=== PATIENT | male | born 1970 | race Caucasian/White ===

== ENCOUNTER 2020-06-25 14:46 | Emergency (ER) | payer BC, SELFPAY ==
--- NOTE | ~2020-06-25 | CT_ITS ---
EXAMINATION: CT abdomen pelvis w con DATE: 06/25/2020 17:39 INDICATION: Lower abdominal pain TECHNIQUE: Computed tomography (CT) of the abdomen and pelvis was performed with 100 cc Omnipaque 350 intravenous contrast. The dose-length product was 1388.85 mGy-cm. Automated exposure control and ite rative reconstruction technique were employed. COMPARISON: None. FINDINGS: Lung bases are unremarkable. Heart size normal. No significant pleural or pericardial effus ion. No significant vascular abnormality. No lymphadenopathy. Fatty infiltration of the liver. The spleen, pancreas, adrenal glands and kidneys are unremarkable. G allbladder is present. There are multiple mildly thickened segments of small bowel with scattered air -fluid levels and segments of mildly dilated small bowel. No definite transition point is identified, although the distal small bowel is decompressed. Small amount of free fluid in the pelvis and mesent mary. No acute osseous abnormality. IMPRESSION: 1. Mildly dilated fluid-filled small bowel with segments of bowel wall thickening. No definite transi tion point. Differential diagnosis includes enteritis, ileus and partial small bowel obstruction. 2: Small amount of free fluid in the pelvis and mesentery, nonspecific. Reviewed, dictated and finalized at location A. IMPRESSION: 1. Mildly dilated fluid-filled small bowel with segments of bowel wall thickeni ng. No definite transition point. Differential diagnosis includes enteritis, il eus and partial small bowel obstruction. 2: Small amount of free fluid in the pelvis and mesentery, nonspecific.
[2020-06-25 14:52] VITALS: BP 157/104; PULSE 90; RESP 18; TEMP 36; O2SAT 98
[2020-06-25 15:09] LABS: Basophils Percent Auto 0.3 % (0.2-1.2); Eosinophils Absolute Auto 0.3 K/mm3 (0-0.3); Eosinophils Percent Auto 2.2 % (0-4.4); Hematocrit 46.8 % (42.0-52.0); Hemoglobin 16.3 g/dL (14.0-18.0); Immature Granulocyte Absolute 0.04 K/mm3 (0.00-0.031); Immature Granulocyte Percent A 0.3 % (0-0.5); Lymphocytes Absolute Auto 2.07 K/mm3 (0.9-3.2); Lymphocytes Percent Auto 17.9 % (18.3-44.2); Mean Corpuscular HGB Conc 34.8 g/dl (32-36); Mean Corpuscular Hemoglobin 30.1 pg (26-34); Mean Corpuscular Volume 86.5 fl (80-100); Mean Platelet Volume 10.3 fl (7.4-10.4); Monocytes Absolute Auto 0.6 K/mm3 (0.1-0.6); Monocytes Percent Auto 5.4 % (2.6-8.5); Neutrophils Absolute Auto 8.5 K/mm3 (1.3-6.7); Neutrophils Percent Auto 73.9 % (45.5-73.1); Platelet Count Result 330 k/mm3 (150-375); Red Blood Count 5.41 M/mm3 (4.6-6.20); Red Cell Distribution Width 12.8 % (11.5-14.5); White Blood Count 11.6 K/mm3 (4.5-10.0)
[2020-06-25 15:20] LABS: Alanine Aminotransferase 70 U/L (4-50); Albumin Level 4.8 g/dL (3.5-5.1); Alkaline Phosphatase 89 U/L (38-126); Anion Gap 10 mmol/L (8-16); Aspartate Amino Transferase 50 U/L (17-59); Bilirubin,Total 0.5 mg/dL (0.2-1.3); Blood Urea Nitrogen 15 mg/dL (9-20); Calcium 10.1 mg/dL (8.4-10.2); Carbon Dioxide 27 mmol/L (22-30); Chloride 100 mmol/L (98-107); Estimated CRCL calculation 167 ml/min; Estimated Glomerular Filt Rate > 60; Glucose 132 mg/dL (75-110); Lipase 64 U/L (23-300); Potassium 4.2 mmol/L (3.4-5.0); Sodium 137 mmol/L (137-145)
[2020-06-25 15:23] LABS: Add Urine Microscopic? YES; Appearance Urine Clear (Clear); Bilirubin Urine Negative (Negative); Blood Urine 1+ (Negative); Color Urine Yellow (Yellow); Glucose Urine UA Negative (Negative); Ketones Urine 1+ mg/dL (Negative); Leukocyte Esterase Ur Negative LEU/UL (Negative); Mucus Urine Rare /lpf; Nitrate Urine Negative (Negative); Protein Urine Negative (Negative); RBC Urine 0-2 /hpf (0-2); Specific Grav Ur 1.026 (1.001-1.035); Urobilinogen Urine Negative mg/dL (<2.0); WBC Urine 0-3 /hpf
--- NOTE | 2020-06-25 16:25 | ED.ABDPAIN ---
HPI - Abdominal Pain General Chief Complaint: Abdominal Pain Stated Complaint: abd pain Time Seen by Provider: 06/25/20 16:17 Source: patient Mode of arrival: ambulatory Limitations: no limitations History of Present Illness HPI narrative: This patient is a 50 year old male who presents for evaluation lower abdominal pain since last night. He reports cramping abdominal pain that improves with laying position. He denies associated nausea, vomiting or diarrhea. He also denies urinary complaints. His pain has improved currently. MD elicited complaint: abdominal pain Onset (ago): day(s) Pain Consistency: intermittent Location: LLQ Quality: cramping Radiation: none Migration to: no migration Related Data Allergies Allergy/AdvReac Type Severity Reaction Status Date / Time No Known Allergies Allergy Verified 11/12/16 00:09 Review of Systems Review of Systems: All systems reviewed & are unremarkable except as noted in HPI and below Constitutional: Constitutional: Denies chills and Denies fever(s) Gastrointestinal: Gastrointestinal: Reports abdominal pain, Denies constipation, Denies diarrhea and Denies vomiting Musculoskeletal: Musculoskeletal: Denies back pain PMFSH Past Medical History Medical History (Updated 06/25/20 @ 18:43 by Annamarie Doherty MD) DDD (degenerative disc disease) Surgical History Surgical History (Updated 06/25/20 @ 16:27 by Annamarie Doherty MD) No pertinent past surgical history Social History Social History (Updated 06/25/20 @ 16:27 by Annamarie Doherty MD) Smoking packs per day: 1 Smoking cigarettes per day: 20.0 Smoking status: Current every day smoker Exam Narrative: Exam Narrative: GENERAL: Well-appearing, well-nourished, and in no acute distress. HEAD: Normocephalic, atraumatic EYES: PERRLA and EOMI, conjunctiva clear without discharge THROAT:Mucous membranes moist, Oropharynx normal without erythema, exudate, peritonsillar swelling or fluctuance NECK: Supple, without lymphadenopathy or mass RESPIRATORY: No respiratory distress, Airway patent, Respirations non-labored, Clear to auscultation without rales, rhonchi or wheeze HEART: Regular rate and rhythm. No murmur heard. Normal peripheral pulses. ABDOMEN: Soft,LLQ pain, nondistended, normal active bowel sounds. No masses. No rebound or guarding, No organomegaly. EXTREMITIES: No edema, normal strength with full range of motion. SKIN: Warm, dry, normal color without rash NEURO: Alert and oriented x3. CN 2-12 grossly intact. No focal deficits. PSYCH: Normal mood and affect. Course Reevaluation(s) Reevaluation #1: Patient states he has not pain currently. I discussed ct scan. He most likely has enteritis as he has not nausea, vomiting and he had a normal BM today. No obstruction. He is stable for discharge home Date: 06/25/20 Time: 18:41 Vital Signs Vital signs: Vital Signs Temperature 96.8 F L 06/25/20 14:52 Pulse Rate 90 06/25/20 14:52 Respiratory Rate 18 06/25/20 14:52 Blood Pressure 157/104 H 06/25/20 14:52 Pulse Oximetry 98 06/25/20 14:52 Temperature 96.8 F L 06/25/20 14:52 Pulse Rate 90 06/25/20 14:52 Respiratory Rate 18 06/25/20 14:52 Blood Pressure 157/104 H 06/25/20 14:52 Pulse Oximetry 98 06/25/20 14:52 MDM - Abdominal Pain Lab Data Attestation: I reviewed the patient's lab results. Result diagrams: 06/25/20 15:03 06/25/20 15:03 Labs: Lab Results 06/25/20 06/25/20 06/25/20 Range/Units 15:03 15:03 15:13 WBC 11.6 H (4.5-10.0) K/mm3 RBC 5.41 (4.6-6.20) M/mm3 Hgb 16.3 (14.0-18.0) g/dL Hct 46.8 (42.0-52.0) % MCV 86.5 (80-100) fl MCH 30.1 (26-34) pg MCHC 34.8 (32-36) g/dl RDW 12.8 (11.5-14.5) % Plt Count 330 (150-375) k/mm3 MPV 10.3 (7.4-10.4) fl Immature Gran % (Auto) 0.3 (0-0.5) % Neut % (Auto) 73.9 H (45.5-73.1) % Lymph % (Auto) 17.9 L (18.3-44.2)
== END 2020-06-25 19:11 | disposition home or self-care (01) ==
PROVIDERS: Emergency Provider General Practice; PCP Family Medicine
DX: K52.9 Noninfective gastroenteritis and colitis, unspecified (principal)
CPT/HCPCS: 36415; 74177; 80053; 81001; 83690; 85025; 99284; Q9967

== ENCOUNTER 2020-12-21 16:04 | Observation (INO) | payer OTHER, SELFPAY ==
[2020-12-21] VITALS (32 sets, daily range): BP systolic 140–194; BP diastolic 92–102; PULSE 78–102; RESP 13–23; TEMP 36.1–36.7; O2SAT 93–99; BMI 36.9; BMI 36.1
--- NOTE | ~2020-12-21 | XR_ITS ---
EXAMINATION: XR chest 2V EXAM DATE: 12/21/2020 16:32 INDICATION: Chest tightness, shortness of breath. Heart racing. TECHNIQUE: Frontal and lateral projections of the chest obtained and reviewed. Comparison is made to prior examination from 04/17/2008. FINDINGS: The lungs are clear. There are no pleural effusions. The cardiomediastinal silhouette is within normal limits. There is no pneumothorax suspected. The bones and soft tissues are unremarkab le. IMPRESSION: No acute cardiopulmonary findings. Reviewed, dictated and finalized at location A. TAL MEDIA REPRESENTATIVE
--- NOTE | 2020-12-21 16:09 | ECG_ITS ---
Measurements Intervals [place] Rate: 100 P: 64 AL: 167 QRS: 13 QRSD: 84 T: 50 QT: 324 QTc: 419 Interpretive Statements SINUS TACHYCARDIA MINIMAL Q WAVES- INFERIOR LEADS BASELINE ARTIFACT- I, II, III, AVR, AVL,A VF, V1, V5-V6 BORDERLINE ECG Electronically Signed On 12-21-2020 21:22:46 GRAPHIC TECHNICIAN by Delgado Arthur D.O.
[2020-12-21 16:17] LABS: Basophils Percent Auto 0.5 % (0.2-1.2); Eosinophils Absolute Auto 0.5 K/mm3 (0-0.3); Eosinophils Percent Auto 5.6 % (0-4.4); Hemoglobin 14.5 g/dL (14.0-18.0); Immature Granulocyte Absolute 0.02 K/mm3 (0.00-0.031); Immature Granulocyte Percent A 0.2 % (0-0.5); Lymphocytes Absolute Auto 2.65 K/mm3 (0.9-3.2); Lymphocytes Percent Auto 31.3 % (18.3-44.2); Mean Corpuscular HGB Conc 33.7 g/dl (32-36); Mean Corpuscular Hemoglobin 30.3 pg (26-34); Mean Platelet Volume 9.8 fl (7.4-10.4); Monocytes Absolute Auto 0.7 K/mm3 (0.1-0.6); Monocytes Percent Auto 8.7 % (2.6-8.5); Neutrophils Absolute Auto 4.5 K/mm3 (1.3-6.7); Neutrophils Percent Auto 53.7 % (45.5-73.1); Platelet Count Result 298 k/mm3 (150-375); Red Blood Count 4.78 M/mm3 (4.6-6.20); Red Cell Distribution Width 13.2 % (11.5-14.5); White Blood Count 8.5 K/mm3 (4.5-10.0)
[2020-12-21 16:29] LABS: Anion Gap 7 mmol/L (8-16); Blood Urea Nitrogen 17 mg/dL (9-20); Calcium 9.4 mg/dL (8.4-10.2); Carbon Dioxide 30 mmol/L (22-30); Chloride 103 mmol/L (98-107); Estimated CRCL calculation 92 ml/min; Estimated Glomerular Filt Rate > 60; Glucose 114 mg/dL (75-110); INR 0.9; Potassium 3.9 mmol/L (3.4-5.0); Prothrombin Time 13.1 Seconds (11.1-14.7); Sodium 140 mmol/L (137-145)
[2020-12-21 16:30] LABS: Partial Thromboplastin Time 29.3 SECONDS (22.3-36.8)
[2020-12-21 16:41] LABS: Troponin I < 0.012 ng/mL (0.000-0.034)
[2020-12-21] MEDS: ASPIRIN 81 MG CHEWABLE TABLET 324 MG PO (16:48)
--- NOTE | 2020-12-21 17:32 | ED.CHESTPAIN ---
HPI - Chest Pain General Chief Complaint: Chest Pain Stated Complaint: dizzy, chest pain Time Seen by Provider: 12/21/20 16:10 Source: patient and family Mode of arrival: ambulatory Limitations: no limitations History of Present Illness HPI narrative: Patient is 50 years old white male presented to the ED with intermittent shortness of breath and chest tightness started few days ago. 2 days ago patient was moving a trash can out of the snow subsequently developed severe chest tightness and trouble breathing. The same symptoms happened again today. Patient had history of COVID-19 infection September 2020 with out any subsequent known complications. Patient was scheduled for dental extraction recently and the blood pressure was elevated and the procedure was postponed. Patient used to have high blood pressure medications which discontinued 2006. Last time was seen by his family physician over 1 year ago, unable to follow-up because of the COVID-19 pandemic Related Data Home Medications Medication Instructions Recorded Confirmed alprazolam 1 mg PO TID PRN 12/21/20 12/21/20 buprenorphine-naloxone 2 tablet SUBLINGUAL DAILY 12/21/20 12/21/20 Allergies Allergy/AdvReac Type Severity Reaction Status Date / Time No Known Allergies Allergy Verified 12/21/20 16:48 Review of Systems Review of Systems: Narrative: CONSTITUTIONAL: Denies fever, chills, or sweats. EYES: Denies visual changes, redness, or discharge. ENT: Denies rhinorrhea, congestion, sore throat, or otalgia. CARDIOVASCULAR: Denies chest pain, palpitations, or edema. RESPIRATORY: Denies cough or dyspnea. GASTROINTESTINAL: Denies abdominal pain, nausea, vomiting, or diarrhea. GENITOURINARY: Denies dysuria or hematuria. SKIN: Denies rash or itching. MUSCULOSKELETAL: Denies back pain, joint pain, or myalgia. NEUROLOGIC: Denies headache, numbness, or weakness. PSYCHIATRIC: Denies anxiety or depression. PMFSH Past Medical History Medical History DDD (degenerative disc disease) Surgical History Surgical History No pertinent past surgical history Social History Social History Smoking packs per day: 1 Smoking cigarettes per day: 20.0 Smoking status: Current every day smoker Gender identity (if verbalized by the patient): Male Exam Narrative: Exam Narrative: General appearance: Well-developed, well-nourished, obese, at the bedside Skin: Normal color Head: Normocephalic, nontraumatic Eyes: Clear conjunctiva ENT: Oropharynx normal, ears normal, nose normal Neck: Supple, nontender Chest and respiratory: Airway patent, no respiratory distress, no accessory muscle use Heart: Regular rate/rhythm Abdomen: Soft, nontender, no organomegaly, quiet bowel sounds Vascular: Normal peripheral pulses, normal capillary refill. Musculoskeletal: Normal range of motion, nontender back Neurologic: Alert and oriented ?3, [employer] is normal as tested, no gross motor deficit Course Course Emergency Course: Stable Consultations Consultation #1: DR HENDERSON Date: 12/21/20 Time: 18:21 Vital Signs Vital signs: Vital Signs Temperature 36.1 C L 12/21/20 16:08 Pulse Rate 99 12/21/20 16:08 Respiratory Rate 18 12/21/20 16:08 Blood Pressure 194/101 H 12/21/20 16:08 Pulse Oximetry 99 12/21/20 16:08 Temperature 36.1 C L 12/21/20 16:08 Pulse Rate 81 12/21/20 17:42 Respiratory Rate 20 12/21/20 17:42 Blood Pressure 147/92 H 12/21/20 17:42 Pulse Oximetry 96 12/21/20 17:42 MDM - Chest Pain MDM Narrative Medical deci
[2020-12-21] MEDS: METOPROLOL TARTRATE TAB 25 MG, METOPROLOL TARTRATE TAB 12.5 MG 37.5 MG PO (17:50)
[2020-12-21] MEDS: NITROGLYCERIN OINTMENT 1 INCH DOSE TRANSDERM ×2 (17:51→23:32)
[2020-12-21] MEDS: LORazepam INJ (*CRX) 2 MG/ML VIAL 1 MG IV PUSH (18:51)
[2020-12-21 20:27] LABS: Troponin I < 0.012 ng/mL (0.000-0.034)
--- NOTE | 2020-12-21 21:59 | ADMGEN ---
This patient, Ishmael Lofton, was admitted to IMU Room 203-01 on 12-21-20 at 1950. Patient/family oriented to hospital policies and general routines including ID bracelet, bed and alarms, visiting hours, pain management, procedures, bathroom and other care routines, personal items, smoking policy, room service/diet, and visiting hours. Information on how to activate the Rapid Response Team has been discussed. Patient/Family are encouraged to report perceived risks to care and to ask questions if they do not understand what they are told or what they should do.
[2020-12-21 23:51] LABS: Troponin I < 0.012 ng/mL (0.000-0.034)
[2020-12-22] VITALS (8 sets, daily range): BP systolic 130–150; BP diastolic 74–101; PULSE 73–103; RESP 16–18; TEMP 36.3–36.7; O2SAT 96–100
[2020-12-22] MEDS: NICOTINE (*PBKC) 21 MG PATCH 1 PATCH TRANSDERM (04:18)
[2020-12-22] MEDS: NITROGLYCERIN OINTMENT 1 INCH DOSE TRANSDERM (05:55)
--- NOTE | 2020-12-22 08:34 | PHAR ---
The patient's home med of Buprenorphine-Naloxone 8-2 mg tablet, sublingual has been verified.
--- NOTE | 2020-12-22 09:16 | PM.IMHP ---
H&P: HPI History of Present Illness Date/Time: Date of service: 12/22/20 09:16 Chief complaint: Chest tightness and shortness of breath Cardiology short-stay H and P summary: Chief Complaint: chest pain and shortness of breath. Narrative: Ishmael Lofton is a 50 year old male with past medical history significant for hypertension, tobacco abuse, obesity, possible obstructive sleep apnea who presents to the emergency depart with complaints of chest tightness and shortness of breath. Patient states 2 weeks ago he received epinephrine injection in his mouth anticipation for tooth extraction and developed diaphoresis, rapid heartbeat/palpitations blood pressures 180s over 118mmHg he recalls that eventually resolved spontaneously in the cold air. Patient denied chest pain at that time. Patient states he was otherwise feeling reasonably well but at times would notice rapid heart rate and shortness of breath when he would go upstairs which resolved quickly. He denies associated chest pain at those times either. The day before presentation he was taking out heavy trash cans in the snow and developed rapid heartbeat and shortness of breath once again but without chest pain. He had noted on a couple of occasions tightness in his left and right chest without radiation but then on 1 occasion states pain radiated to his legs. CP occurred at rest, not with activity and would last a few seconds and then resolve. Subsequently, his symptoms returned and were rather constant with SOB which concerned him and his prompted him to present to the ED for evaluation. His EKG does not reveal acute ischemic changes and he has ruled out for myocardial infarction with negative serial Toponins. He did not note any exacerbation with activity at that time. No near-syncope or syncope, recent illnesses, fevers or chills. He COVID-19 in September 2020 but had fully recovered. He reports a history of multiple family members diagnosed with pheochromocytoma. He has not been on antihypertensive medical therapy for quite some time but was quite hypertensive presentation blood pressure 194/101. He received nitroglycerin and metoprolol emergency department and his symptoms eventually resolved with reduction in his blood pressure. He removed nitroglycerin paste this morning on his own due to headache with no recurrence of chest pain. States he feels very well and has no other complaints at this time. He has no known prior history of CAD or other cardiovascular complications. Patient also notes a history of acid reflux of late improved with omeprazole which is somewhat different than that noted at presentation. Review of Systems Review of Systems: All systems reviewed & are unremarkable except as noted in HPI and below Constitutional: Constitutional: Reports as per HPI, Reports no additional constitutional complaints and Reports difficulty sleeping (Longstanding, frequent awakening, snores) Eyes: Eyes: Reports as per HPI and Reports no additional eye complaints ENT: Reports system reviewed and no additional complaints, except as documented and Reports as per HPI Cardiovascular: Cardiovascular: Reports as per HPI, Reports no additional cardiovascular complaints, Reports chest pain and Denies leg edema Respiratory: Respiratory: Reports as per HPI, Reports no additional respiratory complaints and Reports dyspnea Gastrointestinal: Gastrointestinal: Reports as per HPI, Reports no additional gastrointestinal complaints, Denies abdominal pain, Denies melena, Denies hematochezia, Reports heartburn, Denies diarrhea, Denies nausea and Denies vomiting Genitourinary: Genitourinary: Reports no additional male genitourinary complaints and Reports as per HPI Musculoskeletal: Musculoskeletal: Reports no additional musculoskeletal complaints, Reports as per HPI, Reports back pain (Chronic, constant) and Reports arthralgias Integumentary/Breasts: Skin/Breast: Reports system reviewed and no additional co
[2020-12-22] MEDS: METOPROLOL TARTRATE 25 MG TABLET PO (09:20)
[2020-12-22] MEDS: amLODIPine BESYLATE 5 MG TABLET PO (09:21)
[2020-12-22] MEDS: PANTOPRAZOLE 40 MG TABLET PO (09:21)
[2020-12-22] MEDS: ASPIRIN 81 MG CHEWABLE TABLET PO (09:21)
== END 2020-12-22 13:45 | disposition home or self-care (01) ==
LOC: ANHED 18:22 → ANHIMU 21:50
PROVIDERS: Admitting Provider Internal Medicine Cardiovascular Disease; Emergency Provider Emergency Medicine; PCP Family Medicine; Visit Provider Internal Medicine Cardiovascular Disease
DX: R07.9 Chest pain, unspecified (principal); R06.02 Shortness of breath; I10 Essential (primary) hypertension; F41.9 Anxiety disorder, unspecified; Z86.16 Personal history of COVID-19; F17.210 Nicotine dependence, cigarettes, uncomplicated; E66.9 Obesity, unspecified; Z68.36 Body mass index [BMI] 36.0-36.9, adult
CPT/HCPCS: 36415; 71046; 80048; 84484; 85025; 85380; 85610; 85730; 93005; 96374; 99285; A9270; G0378; G0379; J2060

== ENCOUNTER 2021-05-02 12:34 | Emergency (ER) | payer OTHER, SELFPAY ==
[2021-05-02 12:40] VITALS: BP 159/94; PULSE 96; RESP 20; TEMP 36.3; O2SAT 98
--- NOTE | 2021-05-02 12:44 | ED.SKABFB ---
HPI - Skin/Abscess/Foreign Bdy General Chief complaint: Skin/Abscess/Foreign Body Stated complaint: RASH Time Seen by Provider: 05/02/21 13:02 Source: patient and RN notes reviewed Mode of arrival: ambulatory Limitations: no limitations History of Present Illness HPI narrative: 51-year-old male presents concern for rash that started 5 to 6 days ago. Reports itchy rash started on bilateral legs and had patches of pustules with yellow clear fluid. Reports those have resolved however the rash has since spread to his arms, torso. Reports the rash continues to itch generally. He denies swollen lips, swollen tongue, trouble breathing. Denies nausea, vomiting, diarrhea, fever. Denies any known triggers, exposure to poison angela/poison oak. Denies any new medications. MD complaint: rash Related Data Home Medications Medication Instructions Recorded Confirmed alprazolam 1 mg PO TID PRN 12/21/20 12/21/20 buprenorphine-naloxone 2 tablet SUBLINGUAL DAILY 12/21/20 12/21/20 omeprazole 20 mg PO DAILY 12/21/20 12/21/20 buprenorphine-naloxone tablet SUBLINGUAL 05/02/21 Allergies Allergy/AdvReac Type Severity Reaction Status Date / Time No Known Allergies Allergy Verified 05/02/21 12:46 Review of Systems Review of Systems: Narrative: CONSTITUTIONAL: Denies malaise, chills, sweats, or fever. EYES: Denies visual changes, redness, or discharge. ENT: Denies rhinorrhea, congestion, sinus pain, otalgia or sore throat, swollen lips, swollen tongue CARDIOVASCULAR: Denies chest pain, palpitations, or edema. RESPIRATORY: Denies cough or dyspnea. GASTROINTESTINAL: Denies abdominal pain, nausea, vomiting, diarrhea SKIN: Reports generalized itchy rash MUSCULOSKELETAL: Denies myalgia. All systems reviewed & are unremarkable except as noted in HPI and below PMFSH Past Medical History Medical History DDD (degenerative disc disease) Hypertension Surgical History Surgical History No pertinent past surgical history Family History Family History Sibling Diabetes mellitus STEMI (ST elevation myocardial infarction) Kidney disease Pheochromocytoma Kidney transplant recipient Hypertension Father Dementia Hypertension Mother Stomach cancer Social History Social History Smoking packs per day: 0.5 Smoking cigarettes per day: 10.0 Years smoked: 30 Smoking pack-years: 15.00 Smoking status: Current every day smoker Tobacco type: cigarettes Second hand tobacco smoke exposure: Yes Substance use: former Substance use type: crack/cocaine Other substance usage details: clean since October 01, 2019 Gender identity (if verbalized by the patient): Male Spiritual care concerns: No Comments At time of signature, agree with nursing past medical, surgical, social and family history. There is no relevant family history pertinent to the presenting complaint Exam Narrative: Exam Narrative: GENERAL: Well-appearing, well-nourished, and in no acute distress. HEAD: Normocephalic, atraumatic. EYES: PERRLA, conjunctivae clear, and EOMI. ENT: Mucous membranes moist. Oropharynx without edema, erythema or lesions. NECK: Supple. No lymphadenopathy CHEST: Clear to auscultation. No respiratory distress. HEART: Regular rate and rhythm. SKIN: Warm, dry. Patches of maculopapular rash noted to bilateral arms, legs, torso NEURO: Alert and oriented x3. PSYCH: Normal mood and affect Course Course Emergency Course: Patient is aware of diagnosis, understands and agrees to treatment plan. Anticipatory guidance given. Patient agrees to follow-up as directed and is aware of reasons to seek care at the emergency department. Portions of this record may have been created with voice recognition software Vital Signs Madelin
== END 2021-05-02 13:16 | disposition home or self-care (01) ==
PROVIDERS: Emergency Provider Nurse Practitioner; PCP Family Medicine
DX: L25.9 Unspecified contact dermatitis, unspecified cause (principal); F17.210 Nicotine dependence, cigarettes, uncomplicated; I10 Essential (primary) hypertension
CPT/HCPCS: 99213; G0463

== ENCOUNTER 2022-08-31 17:47 | Observation (INO) | payer OTHER, SELFPAY ==
--- NOTE | ~2022-08-31 | XR_ITS ---
EXAM: XR abdomen/kub 1V DATE: 08/31/2022 20:13 HISTORY: cramping . COMPARISON: None available. FINDINGS: Clear lung bases. Multiple loops of dilated small bowel in the left abdomen. No organomega ly. No abnormal abdominal calcification. Degenerative change in the lumbar spine. IMPRESSION: Small bowel obstruction or ileus. Reviewed, dictated and finalized at location K.
--- NOTE | ~2022-08-31 | CT_ITS ---
EXAMINATION: CT abdomen pelvis w con DATE: 08/31/2022 21:28 INDICATION: obstruction TECHNIQUE: Computed tomography (CT) of the abdomen and pelvis was performed with 100 mL Omnipaque-350 intravenous contrast. Automated exposure control and iterative reconstruction technique were employe d. The dose-length product was 1476.98 mGy-cm. COMPARISON: 06/25/2020. FINDINGS: Lower thorax: Unremarkable Liver: Diffuse fatty infiltration. Biliary/Gallbladder: Gallbladder is normal. No bile duct dilation. Pancreas: No mass or duct dilation. Spleen: Normal. Adrenals:No mass. Kidneys: No mass, stone, or hydronephrosis. GI tract: Multiple loops of moderately dilated small bowel in the left abdomen, without focal transit ion point. No pneumatosis or interloop fluid. No large bowel dilation. Normal appendix. Mesentery/Peritoneum: No ascites, mass, or free air. Retroperitoneum: No mass. Atherosclerotic abdominal aortic and/or arterial calcifications. Pelvis: Pelvic organs are within normal limits. Soft Tissues: Soft tissues and body wall unremarkable. Bones: No acute osseous finding. IMPRESSION: Small bowel ileus versus early or partial obstruction. No obstructing lesion or mass detected. No oth er acute abdominopelvic process. Reviewed, dictated and finalized at location K. IMPRESSION: Small bowel ileus versus early or partial obstruction. No obstructing lesion or mass detected. No other acute abdominopelvic process.
--- NOTE | ~2022-08-31 | XR_ITS ---
EXAMINATION: XR sm bowel follow through DATE: 09/01/2022 10:24 INDICATION: Abdominal pain. TECHNIQUE: Oral contrast was administered, and a time course of radiographs of the abdomen was obtain ed. Fluoroscopy of the small bowel was not performed. Fluoroscopy exposure time was 0 minutes. The to cliff number of images was 7. COMPARISON: CT abdomen and pelvis 08/31/2022 FINDINGS: There are mildly dilated loops of jejunum. The liver is normal in caliber. Transit time from the stom ach to proximal colon was approximately 1 hour. IMPRESSION: 1. Mildly dilated jejunum, likely adynamic ileus. Reviewed, dictated and finalized at location A.
[2022-08-31 18:11] VITALS: BP 152/93; PULSE 100; RESP 15; TEMP 36.8; O2SAT 95
[2022-08-31 18:32] LABS: Basophils Percent Auto 0.2 % (0.2-1.2); Eosinophils Absolute Auto 0.1 K/mm3 (0-0.3); Hematocrit 46.9 % (42.0-52.0); Hemoglobin 15.8 g/dL (14.0-18.0); Immature Granulocyte Absolute 0.05 K/mm3 (0.00-0.031); Immature Granulocyte Percent A 0.4 % (0-0.5); Lymphocytes Absolute Auto 1.55 K/mm3 (0.9-3.2); Lymphocytes Percent Auto 12.1 % (18.3-44.2); Mean Corpuscular HGB Conc 33.7 g/dl (32-36); Mean Corpuscular Hemoglobin 30.4 pg (26-34); Mean Corpuscular Volume 90.2 fl (80-100); Mean Platelet Volume 9.7 fl (7.4-10.4); Monocytes Absolute Auto 0.5 K/mm3 (0.1-0.6); Monocytes Percent Auto 4.2 % (2.6-8.5); Neutrophils Absolute Auto 10.5 K/mm3 (1.3-6.7); Neutrophils Percent Auto 82.1 % (45.5-73.1); Platelet Count Result 408 k/mm3 (150-375); Red Cell Distribution Width 12.3 % (11.5-14.5); White Blood Count 12.8 K/mm3 (4.5-10.0)
[2022-08-31 18:46] LABS: Appearance Urine Clear (Clear); Bilirubin Urine Negative (Negative); Blood Urine Negative (Negative); Color Urine Yellow (Yellow); Glucose Urine UA Negative (Negative); Ketones Urine Negative (Negative); Leukocyte Esterase Ur Negative LEU/UL (Negative); Nitrate Urine Negative (Negative); Protein Urine Negative (Negative); Urobilinogen Urine 0.2 mg/dL (<2.0)
[2022-08-31 18:49] LABS: Mucus Urine Rare /lpf; RBC Urine 0-2 /hpf (0-2); WBC Urine 0-3 /hpf
[2022-08-31 18:55] LABS: Add Urine Microscopic? YES
[2022-08-31 18:57] LABS: Alanine Aminotransferase 43 U/L (6-50); Albumin Level 4.9 g/dL (3.5-5.1); Alkaline Phosphatase 84 U/L (38-126); Anion Gap 16 mmol/L (8-16); Aspartate Amino Transferase 39 U/L (17-59); Bilirubin,Total 0.4 mg/dL (0.2-1.3); Blood Urea Nitrogen 13 mg/dL (9-20); Calcium 9.4 mg/dL (8.4-10.2); Carbon Dioxide 27 mmol/L (22-30); Chloride 96 mmol/L (98-107); Estimated CRCL calculation 163 ml/min; Estimated Glomerular Filt Rate > 60; Glucose 122 mg/dL (65-110); Lipase 36 U/L (23-300); Potassium 4.3 mmol/L (3.4-5.0); Sodium 139 mmol/L (137-145)
[2022-08-31 20:00] VITALS: BP 155/99; PULSE 94; RESP 16; O2SAT 97
--- NOTE | 2022-08-31 20:00 | ED.ABDPAIN ---
HPI - Abdominal Pain General Chief Complaint: Abdominal Pain Stated Complaint: TOOTH PAIN, FATTY LIVER DISEASE NAUSEA Time Seen by Provider: 08/31/22 19:47 History of Present Illness HPI narrative: Patient is a 52-year-old male who presents ER with abdominal cramping and bloating. Reports he has been having cramping as a knot in the his lower abdomen over the last day. No radiation. Alleviated at this time. Has had persistent desire to vomit and has actually force himself to vomit which only improved his symptoms for several minutes. He reports that his last bowel movement was yesterday and has not passed gas today. He has had inguinal hernia repair in the past. No fevers or chills or sweats. No chest pain or chest pressure. No diarrhea. No known sick contacts. Has history of fatty liver disease for which she is cared for at [facility]. Reports he had elevated liver enzymes that improved when he decreased his alcohol intake. Related Data Home Medications Medication Instructions Recorded Confirmed alprazolam 1 mg tablet 1 mg PO TID PRN Anxiety 12/21/20 09/01/22 buprenorphine 8 mg-naloxone 2 mg 2 tablet sublingual DAILY 12/21/20 09/01/22 sublingual tablet amlodipine 5 mg tablet (Norvasc) 5 mg PO DAILY 09/01/22 09/01/22 umeclidinium 62.5 mcg-vilanterol 1 inh inhalation DAILY 09/01/22 09/01/22 25 mcg/actuation powdr for inhalation (Anoro Ellipta) Allergies Allergy/AdvReac Type Severity Reaction Status Date / Time lidocaine AdvReac Hypertensio Verified 09/01/22 01:33 n Review of Systems Review of Systems: All systems reviewed & are unremarkable except as noted in HPI and below Constitutional: Constitutional: Denies chills, Reports fatigue and Denies fever(s) ENT: Denies nasal congestion and Denies sore throat Cardiovascular: Cardiovascular: Denies chest pain, Denies rapid heart rate and Denies radiating jaw, neck or arm pain Respiratory: Respiratory: Denies cough, Denies dyspnea and Denies wheezing Gastrointestinal: Gastrointestinal: Reports abdominal pain, Reports bloating, Denies constipation, Denies diarrhea, Reports nausea and Reports vomiting PMFSH Past Medical History Medical History (Updated 09/01/22 @ 03:57 by Jay Lay MD) DDD (degenerative disc disease) Hypertension Surgical History Surgical History (Updated 08/31/22 @ 20:02 by Jay Lay MD) H/O hernia repair Family History Family History Sibling Diabetes mellitus STEMI (ST elevation myocardial infarction) Kidney disease Pheochromocytoma Kidney transplant recipient Hypertension Father Dementia Hypertension Mother Stomach cancer Social History Social History Years smoked: 30 Smoking status: Current every day smoker Second hand tobacco smoke exposure: Yes Alcohol intake: current Drinks per week: 2 Alcohol use details: couple beers here and there Substance use: former Substance use type: crack/cocaine Other substance usage details: clean since October 01, 2019 Has the Lack of Transportation Kept You From Medical Appointments or From Getting Medications?: No Within the Past 12 Months, Were You Worried Whether Your Food Would Run Out Before You Got Money to Buy More?: Never True What is Your Housing Situation Today?: I Have Housing Are You Worried That in the Next 2 Months, You May Not Have Your Own Housing to Live In?: No Do You Have Trouble Paying Your Heating Or Electricity Bill?: No Do You Have Trouble Paying For Medicines?: No Are You Currently Unemployed and Looking for Work?: No Highest Level of Education Completed: High School Diploma/GED Do You Have Trouble With Childcare or the Care of a Family Member?: No Gender identity (if verbalized by the patient): Male Spiritual care concerns: No Exam Narrative: GENERAL: Well-appearing,
[2022-08-31] MEDS: ONDANSETRON INJ 4 MG/2 ML VIAL IV PUSH (20:04)
[2022-08-31 21:00] VITALS: BP 158/108; PULSE 102; RESP 102; TEMP 36.8; O2SAT 98
[2022-08-31 22:00] VITALS: BP 153/109; PULSE 107; RESP 16; TEMP 36.8; O2SAT 98
[2022-08-31 23:00] VITALS: BP 153/106; PULSE 104; RESP 16; TEMP 36.8; O2SAT 97
--- NOTE | 2022-08-31 23:12 | PM.IMHP ---
H&P: HPI History of Present Illness Date/Time: 08/31/22 23:12 Chief Complaint: abdominal pain Narrative: This is a 52-year-old male with past medical history significant for tobacco dependence, alcohol abuse, obesity, hypertension, COPD/emphysema, NOE. patient presents to the emergency room due to abdominal pain which is diffused started out in the morning progressively got worse over the course of the day had some nausea but no vomiting patient has been able to pass gas denies any changes in his stool character, denies hematemesis, melena, coffee-ground emesis, bright red blood per rectum, has had some loose stools, denies any weight loss. Patient has been in his usual state of health prior to today's events. Preliminary workup was significant for abdomen x-ray was reported as: IMPRESSION: Small bowel obstruction or ileus a CT of abdomen and pelvis was reported as: IMPRESSION: Small bowel ileus versus early or partial obstruction. No obstructing lesion or mass detected. No other acute abdominopelvic process. patient has been admitted for further evaluation management and treatment. Review of Systems Review of Systems: abdominal pain, nausea. Constitutional: Constitutional: Denies chills, Denies fever(s), Denies malaise, Denies night sweats, Denies weakness and Denies weight loss Eyes: Eyes: Denies change in vision ENT: Denies dysphagia, Denies vertigo, Denies dizziness and Denies odynophagia Cardiovascular: Cardiovascular: Denies chest pain, Denies syncope, Denies irregular heart rhythm, Denies leg edema, Denies lightheadedness and Denies palpitations Respiratory: Respiratory: Denies chest congestion, Denies cough, Denies excessive phlegm production, Denies pain on inspiration, Denies dyspnea and Denies wheezing Gastrointestinal: Gastrointestinal: Reports abdominal pain, Denies melena, Denies hematochezia, Denies change in stool character, Denies coffee ground emesis, Denies early satiety, Denies dyspepsia, Denies heartburn, Denies diarrhea, Reports loose stools, Reports nausea and Denies vomiting Genitourinary: Genitourinary: Denies dysuria Musculoskeletal: Musculoskeletal: Reports back pain Integumentary/Breasts: Skin/Breast: Denies rash Neurologic: Denies vertigo, Denies dizziness, Denies focal weakness and Denies Sensory deficit (Neuro) Psychiatric: Psychiatric: Reports no additional psychiatric complaints and Reports as per HPI Endocrine: Endocrine: Denies cold intolerance, Denies flushing, Denies heat intolerance, Denies polyphagia, Denies polydipsia and Denies palpitations Hematologic/Lymphatic: Hematologic/Lymphatic: Reports no additional hematologic/lymphatic complaints and Reports as per HPI Allergic/Immunologic: Allergic/Immunologic: Reports no additional allergic/immunologic complaints and Reports as per HPI PMFSH Past Medical History Medical History (Updated 09/01/22 @ 03:38 by Stevo Ramos MD) DDD (degenerative disc disease) Hypertension Surgical History Surgical History (Updated 08/31/22 @ 20:02 by Jay Lay MD) H/O hernia repair Family History Family History Sibling Diabetes mellitus STEMI (ST elevation myocardial infarction) Kidney disease Pheochromocytoma Kidney transplant recipient Hypertension Father Dementia Hypertension Mother Stomach cancer Social History Social History Years smoked: 30 Smoking status: Current every day smoker Second hand tobacco smoke exposure: Yes Alcohol intake: current Drinks per week: 2 Alcohol use details: couple beers here and there Substance use: former Substance use type: crack/cocaine Other substance usage details: clean since October 01, 2019 Has the Lack of Transportation Kept You From Medical Appointments or From Getting Medications?: No Within the Past 12 Months, Were You Wor
[2022-08-31] MEDS: LORazepam INJ (*CRX) 2 MG/ML VIAL 0.5 MG IV PUSH (23:30)
--- NOTE | 2022-08-31 23:49 | PC.NURSE ---
Hold on NGT at this time per V.O Dr. Ramos. Pt is resting on cot no distress, skin pwd and has not had any emesis since arriving to the ED
[2022-08-31 23:52] VITALS: BP 156/100; PULSE 86; RESP 16; TEMP 36.8; O2SAT 100
[2022-09-01 00:43] LABS: SARS-CoV-2 RNA PCR Negative
[2022-09-01 01:00] VITALS: BP 152/100; PULSE 84; RESP 16; TEMP 36.8; O2SAT 100
[2022-09-01 01:20] VITALS: BP 142/90; PULSE 90; RESP 16; TEMP 37.1; O2SAT 91
[2022-09-01 01:21] VITALS: BMI 36.2
--- NOTE | 2022-09-01 01:28 | ADMGEN ---
This patient, Ishmael Lofton, was admitted to [facility] Surg Room 311-01. Patient/family oriented to hospital policies and general routines including ID bracelet, bed and alarms, visiting hours, pain management, procedures, bathroom and other care routines, personal items, smoking policy, room service/diet, and visiting hours. Information on how to activate the Rapid Response Team has been discussed. Patient/Family are encouraged to report perceived risks to care and to ask questions if they do not understand what they are told or what they should do.
[2022-09-01] MEDS: SODIUM CHLORIDE 0.9% IV 1,000 ML 125 ML IV CONT (01:54)
[2022-09-01 06:00] VITALS: BP 130/83; PULSE 80; RESP 16; TEMP 36.3; O2SAT 95
--- NOTE | 2022-09-01 11:00 | PM.DS ---
DS: Admitting Diagnosis Discharge Date 09/01/22 1100 Admitting Diagnosis Small bowel obstruction DS: Discharge Diagnosis Discharge Diagnosis (1) Abdominal pain: Code(s): R10.9 - Unspecified abdominal pain Status: Acute Assessment and Plan: LIKELY SECONDARY TO ILEUS VERSUS SMALL-BOWEL OBSTRUCTION WILL OBTAIN A SMALL-BOWEL FOLLOW-THROUGH IN THE MORE SURGERY CONSULT (2) Ileus: Code(s): K56.7 - Ileus, unspecified Status: Acute Assessment and Plan: NPO SUPPORTIVE CARE CT ABDOMEN AND PELVIS REVIEWED (3) Tobacco dependence: Code(s): F17.200 - Nicotine dependence, unspecified, uncomplicated Status: Acute Assessment and Plan: PATIENT IS DOWN FOR III PACKS A DAY TO 5-6 CIGARETTES NICOTINE PATCH NEEDED (4) DDD (degenerative disc disease): Status: Acute Assessment and Plan: SUPPORTIVE CARE (5) Alcohol abuse: Code(s): F10.10 - Alcohol abuse, uncomplicated Status: Acute Assessment and Plan: PATIENT USED TO DRINK 2-6 BEERS DAILY NOW IS DOWN TO FEW BEERS ON THE WEEKENDS (6) Hypertension: Qualifiers: Hypertension type: unspecified Qualified Code(s): I10 - Essential (primary) hypertension Code(s): I10 - Essential (primary) hypertension Status: Acute Assessment and Plan: CONTINUE TO MONITOR HYDRALAZINE NEEDED (7) Obesity (BMI 30-39.9): Code(s): E66.9 - Obesity, unspecified Status: Acute Assessment and Plan: LIFESTYLE AND DIET MODIFICATION (8) NOE (nonalcoholic steatohepatitis): Code(s): K75.81 - Nonalcoholic steatohepatitis (NOE) Status: Chronic Assessment and Plan: FOLLOW-UP IN OUTPATIENT SETTING DS: Summary Hospital Course Hospital Course: Patient is 50-year-old male with past medical history of tobacco dependence, alcohol abuse, obesity, hypertension, COPD emphysema, Noe who presented to the emergency room with abdominal pain. CT of the abdomen and pelvis showed small bowel ileus versus partial or bowel obstruction. General surgery was consulted. Patient was given antiemetics. Patient did have a small-bowel follow-through which did show patency. Diet was advanced the patient was able to tolerate liquids. Patient is stable for discharge for labs and vital signs at this time. Patient was well hydrated with IV fluids and patient has also had many bouts of diarrhea due to the barium. Patient is comfortable and denies any current problems including chest pain, shortness a breath, nausea, vomiting, diarrhea, constipation, weakness or fatigue. Status at Discharge Functional status at discharge: independent ambulation Overall status at discharge: patient is progressing back to baseline Time Spent with Patient Time attestation: Total time spent providing and/or coordinating discharge services: 38 minutes Time spent: Greater than 30 minutes Specific discharge activities: Diagnostic testing, chart review, developing a treatment plan, education, care coordination documentation, physical exam, result review Exam Const: General: comfortable, no acute distress, well developed, alert, awake and obese Nutritional Appearance: obese Orientation/consciousness: patient oriented x3 HENMT: Head: normal to inspection, normocephalic and atraumatic Ears: hearing grossly normal bilaterally Face/Nose/Sinus: normal facial exam Face and sinus: normal facial exam Eyes: General: appearance normal, both eyes and all related structures Pupils: Equal, round and reactive pupils present EOM: EOMs intact bilaterally Neck: Neck: full ROM, no lymphadenopathy and no JVD Thyroid: thyroid normal Lymphatic: no lymphadenopathy noted Resp: Effort & Inspection: normal respiratory effort and able to speak in complete sentences Auscultation: clear to auscultation bilaterally Cardio: Jugular venous distension: no JVD Rate: regular rate Rhythm: regular rhythm Heart sounds: S1 n
[2022-09-01] MEDS: ONDANSETRON INJ 4 MG/2 ML VIAL IV PUSH (11:10)
--- NOTE | 2022-09-01 11:42 | PM.CNGS ---
Assessment and Plan Assessment and plan (1) Ileus: Code(s): K56.7 - Ileus, unspecified Status: Acute Assessment and Plan: All imaging reviewed. CT scan suggested ileus vs partial small bowel obstruction. His only previous surgery was an open inguinal hernia repair. Therefore, you wouldn't expect him to have a ton of adhesions for a small bowel obstruction. His symptoms have completely resolved and his abdominal exam is benign. Gastrografin small bowel follow through this morning suggests an ileus with transit to the colon in 1 hour. He has had multiple bowel movements today. Will start advancing his diet as tolerated. No indication for surgical intervention. Okay from our standpoint to discharge the patient later today if he is tolerating his diet. No follow-up with our service needed. Thank you for allowing us to see the patient in consultation. (2) Hypertension: Qualifiers: Hypertension type: unspecified Qualified Code(s): I10 - Essential (primary) hypertension Code(s): I10 - Essential (primary) hypertension Status: Acute (3) DDD (degenerative disc disease): Status: Acute (4) NOE (nonalcoholic steatohepatitis): Code(s): K75.81 - Nonalcoholic steatohepatitis (NOE) Status: Chronic (5) Obesity (BMI 30-39.9): Code(s): E66.9 - Obesity, unspecified Status: Acute Plan I have discussed the patient's case and plan of care with Dr. Alcantara. History of Present Illness Consult details Consult date: 09/01/22 Reason for consult: other (Ileus versus small-bowel obstruction) Requesting physician: Jay Lay MD Narrative: This is a 52-year-old man with a history of hypertension, degenerative disc disease, and fatty liver disease, who presented to the emergency department for evaluation of abdominal pain and nausea. He reports waking up around 3:00 a.m. early yesterday morning due to nausea. He tried drinking coffee and his nausea continued to worsen throughout the morning. He felt the need to vomit due to his severe nausea, but was not vomiting. Therefore, he forced himself to vomit once and felt slightly better for about 10 minutes. Throughout the day he also developed bloating and generalized cramping abdominal pain. He felt his symptoms were similar to when he had the stomach flu in the past. Due to persistent symptoms, he presented to the ER for evaluation. By the time he was in the ER, his symptoms had improved. He had a KUB that showed dilated small bowel consistent with a small bowel obstruction versus ileus. Subsequently, he had a CT scan of the abdomen and pelvis showed a small bowel ileus versus early or partial obstruction without a transition point. [place] [id number], but other labs were unremarkable. Urinalysis negative for UTI. COVID negative. Admitted to the hospitalist service. Our service was consulted for the ileus versus small-bowel obstruction. They have deferred NG placement up to this point due to his improved symptoms. The hospitalist ordered a small-bowel follow-through this morning and the patient is now on the medical floor following this test. He reports having at least 8 liquid stools following the contrast study this morning. He reports his abdominal pain, bloating, and nausea have completely resolved through the night. He is actually feeling hungry. His only previous surgery was an open left inguinal hernia repair. He denies any other symptoms leading up to his nausea yesterday. Denies any recent diarrhea, fever, chills, or vomiting. No recent contact with anyone with similar symptoms. Review of Systems Review of Systems: All systems reviewed & are unremarkable except as noted in HPI and below Constitutional: Constitutional: Reports no additional constitutional complaints, Denies chills, Denies fatigue and Denies fever(s) Eyes: Eyes: Reports no additional eye complaints ENT: Reports syst
[2022-09-01 11:59] VITALS: PULSE 74
[2022-09-01] MEDS: METOPROLOL TARTRATE 25 MG TABLET PO (11:59)
[2022-09-01] MEDS: ASPIRIN 81 MG CHEWABLE TABLET PO (11:59)
[2022-09-01] MEDS: amLODIPine BESYLATE 5 MG TABLET PO (12:00)
[2022-09-01 12:24] LABS: Basophils Percent Auto 0.2 % (0.2-1.2); Eosinophils Absolute Auto 0.1 K/mm3 (0-0.3); Eosinophils Percent Auto 1.5 % (0-4.4); Hematocrit 43.3 % (42.0-52.0); Hemoglobin 14.2 g/dL (14.0-18.0); Immature Granulocyte Absolute 0.04 K/mm3 (0.00-0.031); Immature Granulocyte Percent A 0.5 % (0-0.5); Lymphocytes Absolute Auto 1.29 K/mm3 (0.9-3.2); Lymphocytes Percent Auto 15.8 % (18.3-44.2); Mean Corpuscular HGB Conc 32.8 g/dl (32-36); Mean Corpuscular Volume 91.5 fl (80-100); Mean Platelet Volume 9.8 fl (7.4-10.4); Monocytes Absolute Auto 0.5 K/mm3 (0.1-0.6); Monocytes Percent Auto 5.5 % (2.6-8.5); Neutrophils Absolute Auto 6.2 K/mm3 (1.3-6.7); Neutrophils Percent Auto 76.5 % (45.5-73.1); Platelet Count Result 375 k/mm3 (150-375); Red Blood Count 4.73 M/mm3 (4.6-6.20); Red Cell Distribution Width 12.3 % (11.5-14.5); White Blood Count 8.1 K/mm3 (4.5-10.0)
[2022-09-01 12:36] LABS: Alanine Aminotransferase 41 U/L (6-50); Albumin Level 4.8 g/dL (3.5-5.1); Alkaline Phosphatase 65 U/L (38-126); Anion Gap 14 mmol/L (8-16); Aspartate Amino Transferase 37 U/L (17-59); Bilirubin,Total 0.4 mg/dL (0.2-1.3); Blood Urea Nitrogen 15 mg/dL (9-20); Calcium 8.8 mg/dL (8.4-10.2); Carbon Dioxide 28 mmol/L (22-30); Chloride 102 mmol/L (98-107); Estimated CRCL calculation 147 ml/min; Estimated Glomerular Filt Rate > 60; Glucose 113 mg/dL (65-110); Potassium 4.1 mmol/L (3.4-5.0); Sodium 144 mmol/L (137-145)
[2022-09-01 14:00] VITALS: BP 136/86; PULSE 89; RESP 12; TEMP 36.6; O2SAT 96
[2022-09-01] MEDS: UMECLIDINIUM/VILANTEROL 62.5-25 MCG ELLIPTA 1 PUFF INHALATION (15:46)
== END 2022-09-01 16:55 | disposition home or self-care (01) ==
LOC: ANHED 20:17 → ANH3MEDSUR 09-01 03:20
PROVIDERS: Emergency Medicine; Nurse Practitioner; Admitting Provider Internal Medicine; Emergency Provider Emergency Medicine; Visit Provider Hospitalist
DX: K56.7 Ileus, unspecified (principal); I10 Essential (primary) hypertension; K75.81 Nonalcoholic steatohepatitis (NASH); E66.9 Obesity, unspecified; R10.9 Unspecified abdominal pain; F17.210 Nicotine dependence, cigarettes, uncomplicated; F10.10 Alcohol abuse, uncomplicated; R14.0 Abdominal distension (gaseous); F14.11 Cocaine abuse, in remission; Z20.822 Contact with and (suspected) exposure to COVID-19; R93.5 Abnormal findings on diagnostic imaging of other abdominal regions, including retroperitoneum; Z68.36 Body mass index [BMI] 36.0-36.9, adult; J43.9 Emphysema, unspecified; Z79.51 Long term (current) use of inhaled steroids; Z79.899 Other long term (current) drug therapy; Z82.49 Family history of ischemic heart disease and other diseases of the circulatory system
CPT/HCPCS: 36415; 74018; 74177; 74250; 80053; 81001; 83690; 85025; 94640; 96374; 96375; 96376; 99285; A9270; G0378; G0379; J2060; J2405; J7030; Q9967; U0003; U0005